=== PATIENT | female | born 1960 ===

== ENCOUNTER 2019-07-01 06:33 | Day surgery (SDC) | payer OTHER ==
[~2019-07-01 06:33] MED LIST: ALEVE; CLARITIN10 M2 PO; CLONAZEPAM1 MG PO; TYLENOL325 MG PO
== END 2019-07-01 16:15 | disposition home or self-care (01) ==
LOC: CIR.AMB 06:33
DX: D48.1 Neoplasm of uncertain behavior of connective and other soft tissue (principal)